=== PATIENT | male | born 1970 | race Caucasian/White ===

== ENCOUNTER 2018-06-18 03:20 | Emergency (ER) | payer OTHER ==
[2018-06-18] MEDS: LEVETIRACETAM 1000 MG (PMX) 100 ML IVPB (03:40)
[2018-06-18 04:13] LABS: ADD MAN DIFF? NO
[2018-06-18 04:14] LABS: WHITE BLOOD COUNT 8.6 10^3/ul (4.8-10.8)
[2018-06-18 04:14] LABS: BASOPHILS % 0.2 % (0.0-2.0); HEMATOCRIT 36.2 % (42.0-52.0); HEMOGLOBIN 12.7 g/dl (14.0-18.0); LYMPHOCYTES % 11.4 % (15.0-51.0); MEAN CORPUSCULAR HEMOGLOBIN 31.8 pg (29.0-33.0); MEAN CORPUSCULAR HGB CONC 35.1 g/dl (32.0-37.0); MEAN CORPUSCULAR VOLUME 90.7 fl (82.0-101.0); MONOCYTE # 0.5 10^3/ul (0.3-0.9); MONOCYTES % 5.4 % (0.0-11.0); NEUTROPHIL # 7.1 10^3/ul (1.6-7.5); NEUTROPHILS % 82.3 % (39.0-77.0); PLATELET COUNT 201 10^3/UL (140-415); RED BLOOD COUNT 3.99 10^6/ul (4.70-6.10)
[2018-06-18 04:33] LABS: ALANINE AMINOTRANSFERASE 16 IU/L (13-69); ALBUMIN 3.9 g/dl (3.3-4.9); ALBUMIN/GLOBULIN RATIO 1.39; ALKALINE PHOSPHATASE 66 IU/L (42-121); ANION GAP 7 (5-13); ASPARTATE AMINO TRANSFERASE 20 IU/L (15-46); BILIRUBIN,INDIRECT 0.3 mg/dl (0-1.1); BILIRUBIN,TOTAL 0.3 mg/dl (0.2-1.3); BLOOD UREA NITROGEN 10 mg/dl (7-20); CALCIUM 8.7 mg/dl (8.4-10.2); CARBON DIOXIDE 26 mmol/L (21-31); CHLORIDE 104 mmol/L (97-110); CREATININE 0.66 mg/dl (0.61-1.24); Estimated GFR > 60 mL/min (>60); GLUCOSE 118 mg/dl (70-220); INR 0.97; POTASSIUM 3.9 mmol/L (3.5-5.1); SODIUM 137 mmol/L (135-144); TOTAL PROTEIN 6.7 g/dl (6.1-8.1)
[2018-06-18 04:44] LABS: TROPONIN-I < 0.012 ng/ml (0.000-0.120)
== END 2018-06-18 05:28 | disposition home or self-care (01) ==
LOC: E/R 03:20
DX: G40.909 Epilepsy, unspecified, not intractable, without status epilepticus (principal); R40.2142 Coma scale, eyes open, spontaneous, at arrival to emergency department; R40.2362 Coma scale, best motor response, obeys commands, at arrival to emergency department; R40.2252 Coma scale, best verbal response, oriented, at arrival to emergency department; R07.9 Chest pain, unspecified
CPT/HCPCS: 36415; 71045; 80053; 84484; 85025; 85610; 93005; 96374; 99285-25

== ENCOUNTER 2018-08-03 00:33 | Emergency (ER) | payer OTHER ==
[2018-08-03 01:39] LABS: ADD MAN DIFF? NO
[2018-08-03] MEDS: LEVETIRACETAM 1000 MG (PMX) 100 ML IVPB (01:39)
[2018-08-03] MEDS: SOD CHLORIDE 0.9% 500 ML IV (01:39)
[2018-08-03 01:44] LABS: BASOPHILS % 0.4 % (0.0-2.0); EOSINOPHILS # 0.3 10^3/ul (0.0-0.5); EOSINOPHILS % 3.5 % (0.0-7.0); HEMATOCRIT 35.6 % (42.0-52.0); HEMOGLOBIN 12.3 g/dl (14.0-18.0); LYMPHOCYTES # 0.9 10^3/ul (0.8-2.9); LYMPHOCYTES % 12.8 % (15.0-51.0); MEAN CORPUSCULAR HEMOGLOBIN 31.1 pg (29.0-33.0); MEAN CORPUSCULAR HGB CONC 34.6 g/dl (32.0-37.0); MEAN CORPUSCULAR VOLUME 89.9 fl (82.0-101.0); MEAN PLATELET VOLUME 8.7 fl (7.4-10.4); MONOCYTE # 0.6 10^3/ul (0.3-0.9); MONOCYTES % 8.8 % (0.0-11.0); NEUTROPHIL # 5.3 10^3/ul (1.6-7.5); NEUTROPHILS % 74.4 % (39.0-77.0); PLATELET COUNT 297 10^3/UL (140-415); RED BLOOD COUNT 3.96 10^6/ul (4.70-6.10); RED CELL DISTRIBUTION WIDTH 11.9 % (11.5-14.5)
[2018-08-03 01:44] LABS: WHITE BLOOD COUNT 7.1 10^3/ul (4.8-10.8)
[2018-08-03 01:58] LABS: ANION GAP 8 (5-13); BLOOD UREA NITROGEN 13 mg/dl (7-20); CALCIUM 8.9 mg/dl (8.4-10.2); CARBON DIOXIDE 28 mmol/L (21-31); CHLORIDE 99 mmol/L (97-110); Estimated GFR > 60 mL/min (>60); GLUCOSE 103 mg/dl (70-220); POTASSIUM 3.8 mmol/L (3.5-5.1); SODIUM 135 mmol/L (135-144)
[2018-08-03] MEDS: SOD CHLORIDE 0.9% 2,000 ML IV ×2 (06:07→07:49)
[2018-08-03] MEDS: SOD CHLORIDE 0.9% 1,000 ML IV (06:46)
== END 2018-08-03 07:53 | disposition home or self-care (01) ==
LOC: E/R 00:33
DX: G40.909 Epilepsy, unspecified, not intractable, without status epilepticus (principal); R40.2122 Coma scale, eyes open, to pain, at arrival to emergency department; R40.2352 Coma scale, best motor response, localizes pain, at arrival to emergency department; R40.2232 Coma scale, best verbal response, inappropriate words, at arrival to emergency department
CPT/HCPCS: 36415; 70450; 80048; 82962; 85025; 96365; 96366; 99285-25

== ENCOUNTER 2018-10-16 02:27 | Inpatient (IN) | payer OTHER ==
[~2018-10-16 02:27] MED LIST: LORAZEPAM 2 MG INJ
[2018-10-16] MEDS ORDERED: LORAZEPAM 2 MG INJ (02:32)
[2018-10-16] MEDS: LORAZEPAM 2 MG INJ IM (02:44)
[2018-10-16] MEDS: LORAZEPAM 2 MG INJ IV ×2 (02:45→02:59)
[2018-10-16] MEDS: LEVETIRACETAM 1000 MG (PMX) 100 ML IVPB (02:51)
[2018-10-16 02:53] LABS: WHITE BLOOD COUNT 13.2 10^3/ul (4.8-10.8)
[2018-10-16 02:53] LABS: ABNORMAL IP MESSAGE 1; HEMATOCRIT 45.9 % (42.0-52.0); MEAN CORPUSCULAR HEMOGLOBIN 30.5 pg (29.0-33.0); MEAN CORPUSCULAR HGB CONC 32.7 g/dl (32.0-37.0); MEAN CORPUSCULAR VOLUME 93.5 fl (82.0-101.0); MEAN PLATELET VOLUME 9.5 fl (7.4-10.4); PLATELET COUNT 227 10^3/UL (140-415); POSITIVE DIFF @See below; RED BLOOD COUNT 4.91 10^6/ul (4.70-6.10); RED CELL DISTRIBUTION WIDTH 13.4 % (11.5-14.5)
[2018-10-16 03:00] LABS: ANION GAP 25 (5-13); BLOOD UREA NITROGEN 12 mg/dl (7-20); CALCIUM 9.7 mg/dl (8.4-10.2); CARBON DIOXIDE 13 mmol/L (21-31); CHLORIDE 107 mmol/L (97-110); CREATININE 0.84 mg/dl (0.61-1.24); Estimated GFR > 60 mL/min (>60); GLUCOSE 126 mg/dl (70-220); POTASSIUM 4.1 mmol/L (3.5-5.1); SODIUM 145 mmol/L (135-144)
[2018-10-16 03:07] LABS: ETHANOL < 10.0 mg/dl (0-0)
[2018-10-16 03:36] LABS: ADD MAN DIFF? YES
[2018-10-16 04:06] LABS: AMPHETAMINE/METHAMPHETAMINE Negative (NEGATIVE); BARBITURATES Negative (NEGATIVE); BENZODIAZEPINES Negative (NEGATIVE); CANNABINOIDS Negative (NEGATIVE); COCAINE Negative (NEGATIVE); OPIATES Negative (NEGATIVE)
[2018-10-16 04:55] LABS: BAND NEUTROPHILS #M 0.1 10^3/ul (0.0-0.6); BAND NEUTROPHILS % (M) 1 % (0-4); BASOPHIL #M 0.1 10^3/ul (0.0-0.0); BASOPHILS % (M) 1 % (0-2); LYMPHOCYTES #M 8.5 10^3/ul (0.8-2.9); LYMPHOCYTES % (M) 65 % (15-51); MONOCYTE #M 1.1 10^3/ul (0.3-0.9); MONOCYTES % (M) 9 % (0-11); PLATELET ESTIMATE NORMAL; SEG NEUT #M 3.2 10^3/ul (1.6-7.5); SEGMENTED NEUTROPHILS (M) % 24 % (39-77); SMUDGE%M 25 % (0-0)
[2018-10-16] MEDS: PIPER-TAZO 3.375 GM IV (PMX) 100 ML IVPB (05:38)
[2018-10-16] MEDS ORDERED: ONDANSETRON 4 MG INJ IV (06:00)
[2018-10-16] MEDS ORDERED: ACETAMINOPHEN 325 MG TAB PO (06:00)
[2018-10-16] MEDS ORDERED: LORAZEPAM 2 MG INJ IV (06:00)
[2018-10-16] MEDS ORDERED: NACL 0.9% 3 ML SYG IV (06:00)
[2018-10-16] MEDS ORDERED: AMPICILLIN/SULB 3 GM/NS (PMX) 100 ML IVPB (06:00)
[2018-10-16] MEDS: SOD CHLORIDE 0.9% 1,000 ML IV ×2 (06:23→18:03)
[2018-10-16] MEDS: OXCARBAZEPINE 300 MG TAB PO ×2 (09:00→23:21)
[2018-10-16 11:01] LABS: HEPATITIS B SURFACE ANTIGEN NEGATIVE (NEGATIVE)
[2018-10-16 11:18] LABS: HEPATITIS C VIRAL ANTIBODY NEGATIVE (NEGATIVE)
[2018-10-16] MEDS: AMPICILLIN/SULB 3 GM/NS (PMX) 100 ML IVPB ×3 (11:25→23:21)
[2018-10-16] MEDS ORDERED: LEVETIRACETAM 1000 MG (PMX) 100 ML IVPB (14:00)
[2018-10-16] MEDS: LEVETIRACETAM 750 MG TAB PO (20:57)
[2018-10-16 22:45] LABS: ADD UMIC NO; UR ASCORBIC ACID NEGATIVE (NEGATIVE); UR BILIRUBIN (Dip) NEGATIVE (NEGATIVE); UR BLOOD (Dip) NEGATIVE (NEGATIVE); UR CLARITY CLEAR (CLEAR); UR COLOR STRAW (YELLOW); UR GLUCOSE (Dip) NEGATIVE (NEGATIVE); UR KETONES (Dip) NEGATIVE (NEGATIVE); UR LEUKOCYTE ESTERASE (Dip) NEGATIVE Leu/ul (NEGATIVE); UR NITRITE (Dip) NEGATIVE (NEGATIVE); UR TOTAL PROTEIN (Dip) NEGATIVE (NEGATIVE); UR UROBILINOGEN (Dip) NEGATIVE (NEGATIVE)
[2018-10-17] MEDS: AMPICILLIN/SULB 3 GM/NS (PMX) 100 ML IVPB ×3 (05:51→18:23)
[2018-10-17 06:24] LABS: ADD MAN DIFF? NO
[2018-10-17 06:39] LABS: BASOPHILS % 0.4 % (0.0-2.0); EOSINOPHILS # 0.1 10^3/ul (0.0-0.5); EOSINOPHILS % 1.1 % (0.0-7.0); HEMOGLOBIN 13.3 g/dl (14.0-18.0); LYMPHOCYTES % 38.5 % (15.0-51.0); MEAN CORPUSCULAR HEMOGLOBIN 30.8 pg (29.0-33.0); MEAN PLATELET VOLUME 9.7 fl (7.4-10.4); MONOCYTE # 0.4 10^3/ul (0.3-0.9); NEUTROPHIL # 2.7 10^3/ul (1.6-7.5); NEUTROPHILS % 51.8 % (39.0-77.0); PLATELET COUNT 186 10^3/UL (140-415); RED BLOOD COUNT 4.32 10^6/ul (4.70-6.10); RED CELL DISTRIBUTION WIDTH 13.1 % (11.5-14.5)
[2018-10-17 06:39] LABS: WHITE BLOOD COUNT 5.3 10^3/ul (4.8-10.8)
[2018-10-17 06:53] LABS: ALANINE AMINOTRANSFERASE 20 IU/L (13-69); ALBUMIN 3.6 g/dl (3.3-4.9); ALKALINE PHOSPHATASE 70 IU/L (42-121); ANION GAP 8 (5-13); ASPARTATE AMINO TRANSFERASE 20 IU/L (15-46); BILIRUBIN,INDIRECT 0.4 mg/dl (0-1.1); BILIRUBIN,TOTAL 0.4 mg/dl (0.2-1.3); BLOOD UREA NITROGEN 10 mg/dl (7-20); CALCIUM 8.6 mg/dl (8.4-10.2); CARBON DIOXIDE 25 mmol/L (21-31); CHLORIDE 108 mmol/L (97-110); CHOL/HDL RATIO 3.1 RATIO; CHOLESTEROL 163 mg/dl (100-200); CREATININE 0.71 mg/dl (0.61-1.24); Estimated GFR > 60 mL/min (>60); GLUCOSE 89 mg/dl (70-220); HDL CHOLESTEROL 52 mg/dl (28-71); LDL CHOLESTEROL,CALCULATED 94 mg/dl; MAGNESIUM 2.1 mg/dl (1.7-2.5); POTASSIUM 3.4 mmol/L (3.5-5.1); SODIUM 141 mmol/L (135-144); TOTAL PROTEIN 6.6 g/dl (6.1-8.1); TRIGLYCERIDES 87 mg/dl (0-149)
[2018-10-17 08:12] LABS: HEMOGLOBIN A1C 4.9 % (0-5.9)
[2018-10-17] MEDS: OXCARBAZEPINE 300 MG TAB PO ×2 (08:57→20:38)
[2018-10-17] MEDS: LEVETIRACETAM 750 MG TAB PO ×2 (08:57→20:49)
[2018-10-17] MEDS: AZITHROMYCIN 500 MG TAB PO (12:06)
[2018-10-17] MEDS: POTASSIUM CHLORIDE (SR) 20 MEQ TAB PO (12:07)
[2018-10-17] MEDS: SOD CHLORIDE 0.9% 1,000 ML IV (16:06)
[2018-10-18] MEDS: SOD CHLORIDE 0.9% 1,000 ML IV ×4 (00:39→23:25)
[2018-10-18] MEDS: AMPICILLIN/SULB 3 GM/NS (PMX) 100 ML IVPB ×3 (01:15→12:19)
[2018-10-18 06:22] LABS: ANION GAP 5 (5-13); BLOOD UREA NITROGEN 12 mg/dl (7-20); CALCIUM 8.8 mg/dl (8.4-10.2); CARBON DIOXIDE 25 mmol/L (21-31); CHLORIDE 112 mmol/L (97-110); CREATININE 0.74 mg/dl (0.61-1.24); Estimated GFR > 60 mL/min (>60); GLUCOSE 94 mg/dl (70-220); SODIUM 142 mmol/L (135-144)
[2018-10-18] MEDS: LEVETIRACETAM 750 MG TAB PO ×2 (08:44→21:14)
[2018-10-18] MEDS: OXCARBAZEPINE 300 MG TAB PO ×2 (08:45→21:14)
[2018-10-18] MEDS: AMOXICILLIN/CLAV 875 MG TAB PO (21:14)
[2018-10-19] MEDS: SOD CHLORIDE 0.9% 1,000 ML IV ×2 (05:15→15:18)
[2018-10-19 06:55] LABS: ADD MAN DIFF? NO
[2018-10-19 07:07] LABS: WHITE BLOOD COUNT 4.8 10^3/ul (4.8-10.8)
[2018-10-19 07:07] LABS: BASOPHILS % 0.4 % (0.0-2.0); EOSINOPHILS # 0.1 10^3/ul (0.0-0.5); EOSINOPHILS % 1.7 % (0.0-7.0); HEMOGLOBIN 13.3 g/dl (14.0-18.0); LYMPHOCYTES # 2.4 10^3/ul (0.8-2.9); LYMPHOCYTES % 50.1 % (15.0-51.0); MEAN CORPUSCULAR HEMOGLOBIN 30.6 pg (29.0-33.0); MEAN CORPUSCULAR VOLUME 87.6 fl (82.0-101.0); MEAN PLATELET VOLUME 9.5 fl (7.4-10.4); MONOCYTE # 0.4 10^3/ul (0.3-0.9); MONOCYTES % 8.5 % (0.0-11.0); NEUTROPHIL # 1.9 10^3/ul (1.6-7.5); NEUTROPHILS % 39.1 % (39.0-77.0); PLATELET COUNT 179 10^3/UL (140-415); RED BLOOD COUNT 4.34 10^6/ul (4.70-6.10); RED CELL DISTRIBUTION WIDTH 12.8 % (11.5-14.5)
[2018-10-19 07:33] LABS: ANION GAP 7 (5-13); BLOOD UREA NITROGEN 10 mg/dl (7-20); CALCIUM 8.8 mg/dl (8.4-10.2); CARBON DIOXIDE 23 mmol/L (21-31); CHLORIDE 110 mmol/L (97-110); CREATININE 0.75 mg/dl (0.61-1.24); Estimated GFR > 60 mL/min (>60); GLUCOSE 96 mg/dl (70-220); POTASSIUM 3.7 mmol/L (3.5-5.1); SODIUM 140 mmol/L (135-144)
[2018-10-19] MEDS: OXCARBAZEPINE 300 MG TAB PO ×2 (08:29→20:59)
[2018-10-19] MEDS: LEVETIRACETAM 750 MG TAB PO ×2 (08:29→20:59)
[2018-10-19] MEDS: AMOXICILLIN/CLAV 875 MG TAB PO ×2 (08:29→20:59)
[2018-10-19 16:26] LABS: LEVETIRACETAM 23.9 mcg/mL
[2018-10-20] MEDS: AMOXICILLIN/CLAV 875 MG TAB PO (08:42)
[2018-10-20] MEDS: LEVETIRACETAM 750 MG TAB PO (08:42)
[2018-10-20] MEDS: SOD CHLORIDE 0.9% 1,000 ML IV (09:51)
[2018-10-20] MEDS: OXCARBAZEPINE 300 MG TAB PO (10:29)
== END 2018-10-20 19:40 | disposition home or self-care (01) | DRG 100 ==
LOC: 5EC 10-17 15:13 → E/R 02:27 → 6WM 05:23
DX: G40.909 Epilepsy, unspecified, not intractable, without status epilepticus (principal); J69.0 Pneumonitis due to inhalation of food and vomit; F32.9 Major depressive disorder, single episode, unspecified
CPT/HCPCS: 36415; 70450; 70490; 71045; 72125; 80048; 80053; 80061; 80177; 80307; 81003; 82962; 83036; 83735; 84100; 84443; 85025; 86803; 87040-91; 87086; 87340; 96372; 96374; 96375; 99285-25

== ENCOUNTER 2018-12-04 16:59 | Emergency (ER) | payer OTHER ==
[2018-12-04] MEDS: ACETAMINOPHEN 325 MG TAB PO (17:41)
[2018-12-04] MEDS: LORAZEPAM 1 MG TAB PO (17:42)
== END 2018-12-04 18:02 | disposition home or self-care (01) ==
LOC: E/R 18:02
DX: G40.909 Epilepsy, unspecified, not intractable, without status epilepticus (principal); R40.2142 Coma scale, eyes open, spontaneous, at arrival to emergency department; R40.2252 Coma scale, best verbal response, oriented, at arrival to emergency department; R40.2362 Coma scale, best motor response, obeys commands, at arrival to emergency department; Z87.891 Personal history of nicotine dependence
CPT/HCPCS: 82962; 99283

== ENCOUNTER 2018-12-26 23:30 | Emergency (ER) | payer OTHER ==
[2018-12-27 00:29] LABS: ADD MAN DIFF? NO
[2018-12-27 00:30] LABS: WHITE BLOOD COUNT 5.3 10^3/ul (4.8-10.8)
[2018-12-27 00:30] LABS: BASOPHILS % 0.6 % (0.0-2.0); EOSINOPHILS # 0.1 10^3/ul (0.0-0.5); EOSINOPHILS % 1.1 % (0.0-7.0); HEMATOCRIT 40.7 % (42.0-52.0); HEMOGLOBIN 14.2 g/dl (14.0-18.0); LYMPHOCYTES # 2.5 10^3/ul (0.8-2.9); LYMPHOCYTES % 46.7 % (15.0-51.0); MEAN CORPUSCULAR HEMOGLOBIN 31.6 pg (29.0-33.0); MEAN CORPUSCULAR HGB CONC 34.9 g/dl (32.0-37.0); MEAN CORPUSCULAR VOLUME 90.4 fl (82.0-101.0); MEAN PLATELET VOLUME 9.3 fl (7.4-10.4); MONOCYTE # 0.4 10^3/ul (0.3-0.9); MONOCYTES % 8.1 % (0.0-11.0); NEUTROPHIL # 2.3 10^3/ul (1.6-7.5); NEUTROPHILS % 43.3 % (39.0-77.0); PLATELET COUNT 193 10^3/UL (140-415); RED CELL DISTRIBUTION WIDTH 12.4 % (11.5-14.5)
[2018-12-27] MEDS: SOD CHLORIDE 0.9% 500 ML IV (00:44)
[2018-12-27] MEDS: LEVETIRACETAM 500 MG (PMX) 100 ML IVPB (00:44)
[2018-12-27] MEDS: LORAZEPAM 2 MG INJ IV (00:45)
[2018-12-27 00:47] LABS: ALANINE AMINOTRANSFERASE 18 IU/L (13-69); ALBUMIN 4.5 g/dl (3.3-4.9); ALBUMIN/GLOBULIN RATIO 1.28; ALKALINE PHOSPHATASE 81 IU/L (42-121); ANION GAP 8 (5-13); ASPARTATE AMINO TRANSFERASE 24 IU/L (15-46); BILIRUBIN,INDIRECT 0.3 mg/dl (0-1.1); BILIRUBIN,TOTAL 0.3 mg/dl (0.2-1.3); BLOOD UREA NITROGEN 13 mg/dl (7-20); CALCIUM 9.2 mg/dl (8.4-10.2); CARBON DIOXIDE 26 mmol/L (21-31); CHLORIDE 107 mmol/L (97-110); Estimated GFR > 60 mL/min (>60); GLUCOSE 95 mg/dl (70-220); LIPASE 187 U/L (23-300); POTASSIUM 3.8 mmol/L (3.5-5.1); SODIUM 141 mmol/L (135-144)
[2018-12-27 00:49] LABS: INR 0.92; PROTIME 12.5 Sec (11.9-14.9)
[2018-12-27 00:50] LABS: PARTIAL THROMBOPLASTIN TIME 33.8 Sec (23.0-35.0)
== END 2018-12-27 02:17 | disposition home or self-care (01) ==
LOC: E/R 23:30
DX: G40.909 Epilepsy, unspecified, not intractable, without status epilepticus (principal)
CPT/HCPCS: 36415; 80053; 83690; 85025; 85610; 85730; 96365; 96375; 99284-25

== ENCOUNTER 2019-02-13 07:03 | Emergency (ER) | payer OTHER ==
[2019-02-13] MEDS: LEVETIRACETAM 500 MG TAB PO (08:05)
== END 2019-02-13 10:00 | disposition home or self-care (01) ==
LOC: E/R 07:03
DX: G40.909 Epilepsy, unspecified, not intractable, without status epilepticus (principal); J06.9 Acute upper respiratory infection, unspecified
CPT/HCPCS: 99283; Z7502